=== PATIENT | male | born 1990 | race Caucasian/White ===

== ENCOUNTER 2018-05-31 22:52 | Emergency (ER) | payer SELFPAY ==
--- NOTE | 2018-05-31 23:06 | ED Physician Chart ---
ED Chief Complaint/HPI - Patient Information Date Seen:: 05/31/18 Time Seen:: 22:55 Chief Complaint:: altered level consciousness History of Present Illness:: [place] [facility] level of consciousness. Patient told the RN that he drank a lot of beer tonight. Allergies:: Allergies Allergy/AdvReac Type Severity Reaction Status Date / Time No Known Allergies Allergy Verified 05/31/18 23:00 Historian:: Patient, EMS Review:: Nurse's Note Reviewed ED Review of Systems - Review of Systems General/Constitutional: No fever, No chills, No weight loss, Weakness, No diaphoresis, No edema, No loss of appetite Skin: No skin lesions, No rash, No bruising Head: No headache, No light-headedness Eyes: No loss of vision, No pain, No diplopia ENT: No earache, No nasal drainage, No sore throat, No tinnitus Neck: No neck pain, No swelling, No thyromegaly, No stiffness, No mass noted Cardio Vascular: No chest pain, No palpitations, No PND, No orthopnea, No edema Pulmonary: No SOB, No cough, No sputum, No wheezing GI: No nausea, No vomiting, No diarrhea, No pain, No melena, No hematochezia, No constipation, No hematemesis G/U: No dysuria, No frequency, No hematuria Musculoskeletal: No bone or joint pain, No back pain, No muscle pain Endocrine: No polyuria, No polydipsia Psychiatric: No prior psych history, No depression, No anxiety, No suicidal ideation Hematopoietic: No bruising, No lymphadenopathy Allergic/Immuno: No urticaria, No angioedema Neurological: No syncope, No focal symptoms, Weakness, No paresthesia, No headache, No seizure, No dizziness, No confusion, No vertigo ED Past Medical History - Past Medical History Past Medical History: No significant medical hx Family History: None Social History: Non Smoker, Alcohol Surgical History: None Psychiatricy History: None Medication: None Family Medical History - Family Member Mother History Unknown: Yes ED Physical Exam - Physical Examination General/Constitutional: Well-developed, well-nourished, No distress Other Gen/Cons comments:: Lethargic but arousable; slurred speech Head: Atraumatic Eyes: Lids, conjuctiva normal, PERRL Skin: Nl inspection, No rash, No skin lesions, No ecchymosis ENMT: External ears, nose nl, TM canals nl, Nasal exam nl, Lips, teeth, gums nl , Oropharynx nl, Tonsils nl Neck: No nuchal rigidity Respiratory: Nl effort/Exclusion, Clear to Auscultation, No Wheeze/Rhonchi/Rales Cardio Vascular: RRR, No murmur, gallop, rubs, NL S1 S2 GI: No tenderness/rebounding/guarding, No organomegaly, No hernia, Normal BS's, Nondistended, No mass/bruits, No McBurney tenderness : No CVA tenderness Extremities: Normal digits & nails Neuro/Psych: No focal deficits Misc: No paraspinal tenderness ED Labs/Radiology/EKG Results - Lab Results Results: Laboratory Results WBC 5.4 Th/cmm (4.8-10.8) 05/31/18 23:20 RBC 4.87 Mil/cmm (4.30-5.70) 05/31/18 23:20 Hgb 15.2 gm/dL (12-16) 05/31/18 23:20 Hct 44.2 % (41.0-60) 05/31/18 23:20 MCV 90.8 fl (80-99) 05/31/18 23:20 MCH 31.3 pg (26.0-30.0) H 05/31/18 23:20 MCHC Differential 34.5 pg (28.0-36.0) 05/31/18 23:20 RDW 11.8 % (11.5-20.0) 05/31/18 23:20 Plt Count 295 Th/cmm (150-400) 05/31/18 23:20 MPV 7.4 fl 05/31/18 23:20 Neutrophils % 53.1 % (40.0-80.0) 05/31/18 23:20 Lymphocytes % 37.1 % (20.0-50.0) 05/31/18 23:20 Monocytes % 8.2 % (2.0-10.0) 05/31/18 23:20 Eosinophils % 0.9 % (0.0-5.0) 05/31/18 23:20 Basophils % 0.7 % (0.0-2.0) 05/31/18 23:20 Sodium 145 mEq/L (136-145) 05/31/18 23:20 Potassium 3.3 mEq/L (3.5-5.1) L 05/31/18 23:20 Chloride 108 mEq/L (98-107) H 05/31/18 23:20 Carbon Dioxide 21.4 mEq/L (21.0-31.0) 05/31/18 23:20 Anion Gap 18.9 (7.0-16.0) H 05/31/18 23:20 BUN 9 mg/dL (7-25) 05/31/18 23:20 Creatinine 1.0 mg/dL (0.7-1.3) 05/31/18 23:20 Est GFR ( Amer) > 60.0 ml/min (>90) 05/31/18 23:20 Est GFR (Non-Af Amer) > 60.0 ml/min 05/31/18 23:20 BUN/Creatinine Ratio 9.0 05/31/18 23:20 Glucose 128 mg/dL (70-105) H 05/31/18 23:20 Calcium 8.6 mg/dL (8.6-10.3) 05/31/18 23:20 Magnesium 2.2 mg/dL (1.9-2.7) 05/31/18 23:20 Ethyl Alcohol 441 mg/dL (0-10) H 05/31/18 23:20 ED Septic Shock - . Is Septic Shock (SBP<90, OR Lactate>4 mmol\L) present?: No ED Reassessment (Disposition) - Reassessment Reassessment:: Patient be discharged when he no longer has slurred speech and ambulates normally. Reassessment Condition:: Improved - Diagnosis Diagnosis:: Acute alcohol intoxication; hypokalemia - Aftercare/Follow up Instructions Aftercare/Follow-Up Instructions:: Refer to Discharge Instructions - Patient Disposition Discharge/Transfer:: Home Condition at Disposition:: Stable, Improved
[2018-05-31] MEDS ORDERED: Sodium Chloride 0.9% 1,000 ML IV ONE (23:29)
[2018-05-31 23:44] LABS: % BASOPHILS 0.7 % (0.0-2.0); % EOSINOPHILS 0.9 % (0.0-5.0); % LYMPHOCYTES 37.1 % (20.0-50.0); % MONOCYTES 8.2 % (2.0-10.0); % NEUTROPHILS 53.1 % (40.0-80.0); HEMATOCRIT 44.2 % (41.0-60); HEMOGLOBIN 15.2 gm/dL (12-16); MEAN CELL VOLUME 90.8 fl (80-99); MEAN CORPUSCULAR HEMOGLOBIN 31.3 pg (26.0-30.0); MEAN CORPUSCULAR HGB CONC 34.5 pg (28.0-36.0); MEAN PLATELET VOLUME 7.4 fl; MONOCYTE ABSOLUTE 0.4 Th/cmm (0.3-1.0); PLATELET COUNT 295 Th/cmm (150-400); RED BLOOD COUNT 4.87 Mil/cmm (4.30-5.70); RED CELL DISTRIBUTION WIDTH 11.8 % (11.5-20.0); WHITE BLOOD COUNT 5.4 Th/cmm (4.8-10.8)
[2018-05-31 23:49] LABS: ANION GAP 18.9 (7.0-16.0); BUN - UREA NITROGEN 9 mg/dL (7-25); CALCIUM SERUM 8.6 mg/dL (8.6-10.3); CARBON DIOXIDE 21.4 mEq/L (21.0-31.0); CHLORIDE 108 mEq/L (98-107); GFR AFRICAN-AMERICAN > 60.0 ml/min (>90); GFR NON AFRICAN-AMERICAN > 60.0 ml/min; GLUCOSE 128 mg/dL (70-105); MAGNESIUM 2.2 mg/dL (1.9-2.7); POTASSIUM SERUM 3.3 mEq/L (3.5-5.1); SODIUM SERUM 145 mEq/L (136-145)
== END 2018-06-01 06:21 | disposition home or self-care (01) ==
LOC: EDBD 22:52 → ER 22:52
DX: E87.6 Hypokalemia (principal); F10.229 Alcohol dependence with intoxication, unspecified; Y90.8 Blood alcohol level of 240 mg/100 ml or more
CPT/HCPCS: 36415-UA; 80048-TC; 80320-TC; 83735-TC; 85025-TC; J7030; Z7502